=== PATIENT | male | born 1955 | race Caucasian/White ===

== ENCOUNTER 2017-01-09 15:55 | Emergency (ER) | payer OTHER ==
[~2017-01-09] VITALS: Ht 182.9 cm; Wt 103.1 kg
[2017-01-09 15:57] VITALS: BP 138/88
[2017-01-09 16:30] LABS: BLOOD UREA NITROGEN 14 mg/dL (7-18)
[2017-01-09] MEDS ORDERED: SODIUM CHLORIDE 0.9% 1,000ML IVBOLUS ONE (17:00)
[2017-01-09] MEDS ORDERED: MECLIZINE CHEWABLE 25 MG TAB PO ONE (17:00)
[2017-01-09] MEDS ORDERED: SODIUM CHLORIDE FLUSH 10ML SYR IVF ONE (17:00)
[2017-01-09] MEDS ORDERED: MECLIZINE CHEWABLE 25 MG TAB ONE (17:02)
== END 2017-01-09 18:21 | disposition home or self-care (01) ==
LOC: ED 17:01
DX: H81.11 Benign paroxysmal vertigo, right ear (principal); H81.399 Other peripheral vertigo, unspecified ear
CPT/HCPCS: 36415; 70450; 80048; 82040; 85025

== ENCOUNTER 2019-01-08 10:47 | Inpatient (IN) | payer MEDICAID ==
[~2019-01-08] VITALS: Ht 182.9 cm; Wt 100.9 kg
[2019-01-08] MEDS ORDERED: ONDANSETRON ODT 4 MG PO PRN (11:00)
[2019-01-08] MEDS ORDERED: DOCUSATE 100 MG CAPSULE PO PRN (11:00)
[2019-01-08] MEDS ORDERED: POLYETHYLENE GLYCOL 17 GM PACKET PO PRN (11:00)
[2019-01-08] MEDS ORDERED: BISACODYL 10 MG SUPP PR PRN (11:00)
[2019-01-08] MEDS ORDERED: ACETAMINOPHEN 325 MG TABLET PO PRN (11:00)
[2019-01-08 17:09] VITALS: BP 146/79
[2019-01-08 17:15] VITALS: BP 146/79
[2019-01-08] MEDS: PLEASE ENTER HEIGHT AND WEIGHT MC SCH (17:30)
[2019-01-08] MEDS ORDERED: GABA300C10 PO (17:39)
[2019-01-08 19:33] VITALS: BP 138/84
[2019-01-09] MEDS: PLEASE ENTER HEIGHT AND WEIGHT MC SCH (01:30)
[2019-01-09 06:03] LABS: BASOPHILS # (AUTO) 0.03 x10^3/uL (0-0.1); BASOPHILS % (AUTO) 1 % (0-1); EOSINOPHILS # (AUTO) 0.04 x10^3/uL (0-0.4); EOSINOPHILS % (AUTO) 1 % (1-7); LYMPHOCYTES # (AUTO) 1.12 x10^3/uL (1-3.4); LYMPHOCYTES % (AUTO) 21 % (22-44); MD NO; MEAN CORPUSCULAR HEMOGLOBIN 32.3 pg (27.5-34.5); MEAN CORPUSCULAR HGB CONC 32.9 g/dL (33.2-36.2); MEAN CORPUSCULAR VOLUME 98.3 fL (81-97); MEAN PLATELET VOLUME 7.9 fL (7.4-10.4); MONOCYTES # (AUTO) 0.55 x10^3/uL (0.2-0.8); MONOCYTES % (AUTO) 11 % (2-9); NEUTROPHILS % (AUTO) 67 % (42-75); PLATELET COUNT 140 x10^3/uL (130-400); RED BLOOD COUNT 5.06 x10^6/uL (4.38-5.82); RED CELL DISTRIBUTION WIDTH 15.5 % (9.4-14.8)
[2019-01-09 06:29] LABS: CHLORIDE 106 mmol/L (98-107)
[2019-01-09 07:10] VITALS: BP 154/93
[2019-01-09 07:13] LABS: ANION GAP 7 mmol/L (5-15); CALCIUM 8.9 mg/dL (8.5-10.1); CHOL/HDL RATIO 1.5; CHOLESTEROL, TOTAL 164 mg/dL (140-239); CREATININE 1.02 mg/dL (0.7-1.3); FREE T4 (FREE THYROXINE) 1.05 ng/dL (0.76-1.46); HDL CHOL % 65 % (26-37); HDL CHOLESTEROL (DIRECT) 106 mg/dL (40-60); LDL CHOLESTEROL,CALCULATED 47 mg/dL (54-169); LDL/HDL RATIO 0.4 (0.5-3.0); TRIGLYCERIDES 56 mg/dL (50-200); VLDL CHOLESTEROL 11 mg/dL (0-25)
[2019-01-09] MEDS: FOLIC ACID 1 MG TABLET PO SCH (08:45)
[2019-01-09] MEDS: THIAMINE 100MG TABLET PO SCH (08:45)
[2019-01-09 14:12] LABS: MICROSCOPIC AUTO
[2019-01-09 14:15] LABS: CULTURE INDICATED? YES
[2019-01-09] MEDS: GABAPENTIN 300 MG CAPSULE PO SCH ×2 (17:24→20:10)
[2019-01-09] MEDS: NICOTINE GUM 2 MG BC PRN ×2 (18:17→18:26)
[2019-01-09 19:52] VITALS: BP 127/81
[2019-01-09] MEDS: AMLODIPINE 5 MG TABLET PO SCH (20:11)
[2019-01-10 07:15] VITALS: BP 131/83
[2019-01-10 07:37] LABS: CHOL/HDL RATIO 1.7; LDL/HDL RATIO 0.5 (0.5-3.0)
[2019-01-10] MEDS: THIAMINE 100MG TABLET PO SCH (08:41)
[2019-01-10] MEDS: FOLIC ACID 1 MG TABLET PO SCH (08:41)
[2019-01-10] MEDS: GABAPENTIN 300 MG CAPSULE PO SCH ×3 (08:41→20:06)
[2019-01-10] MEDS: AMLODIPINE 5 MG TABLET PO SCH ×2 (08:41→20:06)
[2019-01-10] MEDS: NICOTINE GUM 2 MG BC PRN ×3 (08:45→16:18)
[2019-01-10] MEDS: ACAMPROSATE 333 MG TABLET.DR PO SCH ×3 (16:18→20:06)
[2019-01-10] MEDS: ESCITALOPRAM 10MG TABLET PO SCH (16:18)
[2019-01-10 19:39] VITALS: BP 143/88
[2019-01-11 07:06] VITALS: BP 144/89
[2019-01-11] MEDS: ESCITALOPRAM 10MG TABLET PO SCH (08:04)
[2019-01-11] MEDS: ACAMPROSATE 333 MG TABLET.DR PO SCH ×3 (08:04→20:11)
[2019-01-11] MEDS: AMLODIPINE 5 MG TABLET PO SCH ×2 (08:04→20:11)
[2019-01-11] MEDS: THIAMINE 100MG TABLET PO SCH (08:04)
[2019-01-11] MEDS: GABAPENTIN 300 MG CAPSULE PO SCH ×3 (08:04→20:11)
[2019-01-11] MEDS: FOLIC ACID 1 MG TABLET PO SCH (08:04)
[2019-01-11 19:39] VITALS: BP 122/84
[2019-01-11] MEDS: NICOTINE GUM 2 MG BC PRN (20:07)
[2019-01-12 07:03] VITALS: BP 125/80
[2019-01-12] MEDS: ACAMPROSATE 333 MG TABLET.DR PO SCH ×3 (08:35→20:23)
[2019-01-12] MEDS: THIAMINE 100MG TABLET PO SCH (08:35)
[2019-01-12] MEDS: FOLIC ACID 1 MG TABLET PO SCH (08:35)
[2019-01-12] MEDS: ESCITALOPRAM 10MG TABLET PO SCH (08:36)
[2019-01-12] MEDS: GABAPENTIN 300 MG CAPSULE PO SCH ×3 (08:36→20:23)
[2019-01-12] MEDS: AMLODIPINE 5 MG TABLET PO SCH ×2 (08:36→20:23)
[2019-01-12] MEDS: NICOTINE GUM 2 MG BC PRN ×2 (12:22→19:34)
[2019-01-12 19:46] VITALS: BP 129/78
[2019-01-13 07:19] VITALS: BP 114/73
[2019-01-13] MEDS ORDERED: LORazepam 1MG TABLET ONE (09:00)
[2019-01-13] MEDS: FOLIC ACID 1 MG TABLET PO SCH (09:04)
[2019-01-13] MEDS: ACAMPROSATE 333 MG TABLET.DR PO SCH ×3 (09:04→21:00)
[2019-01-13] MEDS: AMLODIPINE 5 MG TABLET PO SCH ×2 (09:05→21:00)
[2019-01-13] MEDS: ESCITALOPRAM 10MG TABLET PO SCH (09:05)
[2019-01-13] MEDS: GABAPENTIN 300 MG CAPSULE PO SCH ×3 (09:05→21:00)
[2019-01-13] MEDS: THIAMINE 100MG TABLET PO SCH (09:05)
[2019-01-13 19:39] VITALS: BP 118/75
[2019-01-13] MEDS: NICOTINE GUM 2 MG BC PRN (21:01)
[2019-01-14] MEDS: NICOTINE GUM 2 MG BC PRN (06:29)
[2019-01-14 07:05] VITALS: BP 114/78
[2019-01-14] MEDS: ACAMPROSATE 333 MG TABLET.DR PO SCH ×3 (08:35→20:30)
[2019-01-14] MEDS: FOLIC ACID 1 MG TABLET PO SCH (08:35)
[2019-01-14] MEDS: ESCITALOPRAM 10MG TABLET PO SCH (08:36)
[2019-01-14] MEDS: GABAPENTIN 300 MG CAPSULE PO SCH ×3 (08:36→20:30)
[2019-01-14] MEDS: AMLODIPINE 5 MG TABLET PO SCH ×2 (08:36→20:30)
[2019-01-14] MEDS: THIAMINE 100MG TABLET PO SCH (08:36)
[2019-01-14] MEDS ORDERED: ESCI10TA PO (16:12)
[2019-01-14] MEDS ORDERED: GABA300C10 PO (16:12)
[2019-01-14] MEDS ORDERED: ACAM333T7 PO (16:12)
[2019-01-14] MEDS ORDERED: AMLO-150 PO (16:12)
[2019-01-14 19:20] VITALS: BP 112/69
[2019-01-15 06:54] VITALS: BP 113/79
[2019-01-15] MEDS: ACAMPROSATE 333 MG TABLET.DR PO SCH (08:35)
[2019-01-15] MEDS: ESCITALOPRAM 10MG TABLET PO SCH (08:35)
[2019-01-15] MEDS: THIAMINE 100MG TABLET PO SCH (08:36)
[2019-01-15] MEDS: AMLODIPINE 5 MG TABLET PO SCH (08:36)
[2019-01-15] MEDS: GABAPENTIN 300 MG CAPSULE PO SCH (08:36)
[2019-01-15] MEDS: FOLIC ACID 1 MG TABLET PO SCH (08:37)
== END 2019-01-15 12:05 | disposition home or self-care (01) | DRG 885 ==
LOC: 3E 16:52
PROVIDERS: ADMIT Psychiatry & Neurology Psychosomatic Medicine; ATTEND Psychiatry & Neurology Psychosomatic Medicine
DX: F33.2 Major depressive disorder, recurrent severe without psychotic features (principal); R45.851 Suicidal ideations; F10.20 Alcohol dependence, uncomplicated; I10 Essential (primary) hypertension; G89.29 Other chronic pain; G47.00 Insomnia, unspecified; G62.9 Polyneuropathy, unspecified; Z56.0 Unemployment, unspecified; Z79.899 Other long term (current) drug therapy; Z80.3 Family history of malignant neoplasm of breast; Z80.42 Family history of malignant neoplasm of prostate; Z82.49 Family history of ischemic heart disease and other diseases of the circulatory system; Z86.73 Personal history of transient ischemic attack (TIA), and cerebral infarction without residual deficits; Z87.891 Personal history of nicotine dependence
CPT/HCPCS: 36415; 71045; 80048; 80061; 81001; 82140; 82607; 84439; 84443; 85025; 86592; 87086; 93005; 92522-GN